=== PATIENT | male | born 1995 | race Caucasian/White ===

== ENCOUNTER 2016-08-21 23:15 | Emergency (ER) | payer OTHER ==
[~2016-08-21] VITALS: Ht 175.3 cm; Wt 86.2 kg
[2016-08-21] MEDS ORDERED: AZIT250T5 PO (23:27)
[2016-08-21] MEDS: LIDOCAINE 2% VISCOUS 15 ML UDC PO ONE (23:41)
[2016-08-21] MEDS: ANTACID SUSP 30 ML UDC (MYLANTA) PO ONE (23:41)
[2016-08-21 23:48] LABS: BILIRUBIN,URINE NEGATIVE (NEGATIVE); KETONES,URINE 1+ (NEGATIVE); LEUKOCYTE ESTERASE ,URINE NEGATIVE (NEGATIVE); NITRITE,URINE NEGATIVE (NEGATIVE); PH,URINE 8 (5-9); PROTEIN,URINE 2+ (NEGATIVE); UROBILINOGEN,URINE 1 MG/DL (NORMAL)
[2016-08-22 00:01] LABS: SQUAMOUS EPITHELIAL CELL,UR RARE /HPF
--- NOTE | 2016-08-22 00:05 | ED Abdominal Pain ---
General Chief Complaint: Abdominal/GI Problems Stated Complaint: POSS GALLBLADDER PAIN Nursing Triage Note: epigastric pain since 08/20/16, worse tonight. Sepsis Screen: No Definite Risk Source of Information: Patient Exam Limitations: No Limitations History of Present Illness Time Seen By Provider: 23:25 Initial Comments This 21-year-old gentleman presents to the emergency room with epigastric pain that started about this time last night and has worsened throughout the day. It is also worse with eating. He last ate baked chicken and mashed potatoes at 20:00 which seemed to exacerbate his pain. He has had some nausea without vomiting. He has also had some mild diarrhea. He was recently placed on antibiotics for left ear infection. Allergies and Home Medications Allergies Coded Allergies: fluticasone (Verified Allergy, Unknown, 08/21/16) Home Medications Azithromycin 250 Mg Tablet #6 1 TAB PO UD (Reported) Famotidine 20 Mg Tablet #30 20 MG PO BID Prescribed by: SONG ANGELO on 08/22/167 Omeprazole 20 Mg Tablet.dr #30 20 MG PO BID Prescribed by: SONG ANGELO on 08/22/167 Review of Systems Constitutional: no symptoms reported EENTM: See HPI Respiratory: No Symptoms Reported Gastrointestinal: See HPI Genitourinary: No Symptoms Reported Musculoskeletal: no symptoms reported Skin: no symptoms reported Psychiatric/Neurological: No Symptoms Reported Endocrine: No Symptoms Reported Past Mqvfuoh-Lutbza-Iixomv Hx Patient Social History Alcohol Use: Denies Use Recreational Drug Use: No Smoking Status: Never a Smoker 2nd Hand Smoke Exposure: No Recent Foreign Travel: No Contact w/Someone Who Travel: No Recent Infectious Disease Expo: No Recent Hopitalizations: No Immunizations Up To Date Tetanus Booster (TDap): Less than 5yrs PED Vaccines UTD: Yes Seasonal Allergies Seasonal Allergies: No Surgeries HX Surgeries: Yes (bmt) Respiratory Hx Respiratory Disorders: Yes Respiratory Disorders: Asthma Cardiovascular Hx Cardiac Disorders: No Neurological Hx Neurological Disorders: No Reproductive System Hx Reproductive Disorders: No Genitourinary Hx Genitourinary Disorders: No Gastrointestinal Hx Gastrointestinal Disorders: No Musculoskeletal Hx Musculoskeletal Disorders: No Endocrine Hx Endocrine Disorders: No HEENT HX ENT Disorders: No Cancer Hx Cancer: No Psychosocial Hx Psychiatric Problems: No Integumentary HX Skin/Integumentary Disorder: No Blood Transfusions Hx Blood Disorders: No Family Medical History Significant Family History: Heart Disease, GI Disease (gallbladder) Physical Exam Vital Signs VS - Last 72 Hours, by Label 08/21/16 08/22/16 23:27 00:11 Temp 99.9 99.9 Pulse 95 95 Resp 18 18 B/P 144/98 Pulse Ox 96 96 O2 Delivery Room Air Capillary Refill : Less Than 3 Seconds General Appearance: WD/WN no apparent distress HEENT: PERRL/EOMI normal ENT inspection TMs normal pharynx normal Neck: normal inspection Respiratory: lungs clear normal breath sounds no respiratory distress no accessory muscle use Cardiovascular: regular rate, rhythm no edema no murmur Gastrointestinal: normal bowel sounds non tender soft Extremities: normal inspection Neurologic/Psychiatric: photographic editor II-XII nml as tested no motor/sensory deficits alert normal mood/affect oriented x 3 Skin: normal color warm/dry Progress/Results/Core Measures Results/Orders Lab Results Laboratory Tests Test 08/21/16 23:25 Range/Units Urine Amorphous Sediment MOD AYDEN PHOSPHATE H /LPF Urine Bacteria NEGATIVE /HPF Urine Bilirubin NEGATIVE NEGATIVE Urine Casts NONE /LPF Urine Clarity CLEAR Urine Color YELLOW Urine Crystals PRESENT H /LPF Urine Culture Indicated NO Urine Glucose (UA) NEGATIVE NEGATIVE Urine Ketones 1+ H NEGATIVE Urine Leukocyte Esterase NEGATIVE NEGATIVE Urine Mucus LARGE H /LPF Urine Nitrite NEGATIVE NEGATIVE Urine Protein 2+ H NEGATIVE Urine RBC NONE /HPF Urine RBC (Auto) NEGATIVE NEGATIVE Urine Specific Driscoll 1.010 L 1.016-1.022 Urine Squamous Epithelial Cells RARE /HPF Urine Urobilinogen 1 NORMAL MG/DL Urine WBC NONE /HPF Urine pH 8 5-9 My Orders Orders-SONG CARDONA MD Cbc With Automated Diff (08/21/16 23:27) Comprehensive Metabolic Panel (08/21/16 23:27) Lipase (08/21/16 23:27) Ua Culture If Indicated (08/21/16 23:27) Saline Lock/Iv-Start (08/21/16 23:27) Lidocaine 2% Viscous 15 Ml (Xylocaine Vi (08/21/16 23:45) Antacid Suspension (Mylanta Suspension (08/21/16 23:45) Famotidine Tablet (Pepcid Tablet) (08/22/16 00:15) Pantoprazole Tablet (Protonix Tablet) (08/22/16 00:15) Medications Given in ED Current Medications Medications Dose Ordered Sig/Christopher Route Start Time Stop Time Status Last Admin Dose Admin Al Hydrox/Mg Hydrox/Simethicone 30 ml ONCE ONCE PO 08/21/16 23:45 08/21/16 23:46 DC 08/21/16 23:41 30 ML Famotidine 20 mg ONCE ONCE PO 08/22/16 00:15 08/22/16 00:15 DC 08/22/16 00:10 20 MG Lidocaine HCl 15 ml ONCE ONCE PO 08/21/16 23:45 08/21/16 23:46 DC 08/21/16 23:41 15 ML Pantoprazole Sodium 40 mg ONCE ONCE PO 08/22/16 00:15 08/22/16 00:15 DC 08/22/16 00:10 40 MG Vital Signs/I&O Vital Sign - Last 12Hours 08/21/16 08/22/16 23:27 00:11 Temp 99.9 99.9 Pulse 95 95 Resp 18 18 B/P 144/98 Pulse Ox 96 96 O2 Delivery Room Air Blood Pressure Mean: 113 Progress Note : Progress Note Patient's pain resolved with GI cocktail. Pepcid and Protonix were ordered and administered before dismissal. Discharge instructions reviewed with patient. Departure Impression Impression: Primary Impression: Epigastric abdominal pain Additional Impression: Gastritis Qualified Code: K29.00 - Acute gastritis without bleeding Disposition: HOME, SELF-CARE Condition: Improved Departure-Patient Inst. Decision time for Depature: 00:00 Referrals: TRICIA MCGRAW DO (PCP) Primary Care Physician Patient Instructions: Acute Abdomen (Belly Pain), Adult (DC), Gastritis Add. Discharge Instructions: Take omeprazole 20 mg twice daily for at least 2 weeks. For added treatment, you may also take famotidine (Pepcid) 20 mg twice daily. Avoid the following: Eating large meals, eating close to bedtime, fatty or greasy foods, spicy foods, caffeine, carbonation, chocolate, citrus fruits and juices, tomato products, alcohol, tobacco products, mint, NSAID medications such as ibuprofen or naproxen, or anything else you know irritate your stomach. For immediate relief of stomach pain you may also try Tums per package instructions. Return to the emergency room if symptoms worsen. Follow up with your primary care provider in 1 to 2 weeks. If symptoms have not completely resolved in 2 weeks, please notify your primary care provider. All discharge instructions reviewed with patient and/or family. Voiced understanding. Scripts Omeprazole 20 Mg Tablet.dr20 Mg PO BID #30 TAB Prov:SONG CARDONA MD 08/22/16 Famotidine 20 Mg [id number] Mg PO BID #30 TAB Prov:SONG CARDONA MD 08/22/16 SONG CARDONA MD Aug 22, 2016 00:05
[2016-08-22] MEDS ORDERED: FAMO20TA5 PO (00:08)
[2016-08-22] MEDS ORDERED: OMEP20TA7 PO (00:08)
[2016-08-22] MEDS: PANTOPRAZOLE 40 MG (PROTONIX) TAB PO ONE (00:10)
[2016-08-22] MEDS: FAMOTIDINE 20 MG (PEPCID) TABLET PO ONE (00:10)
[2016-08-22 00:11] VITALS: BP 144/98
== END 2016-08-22 00:11 | disposition home or self-care (01) ==
LOC: ER 23:19
DX: K29.70 Gastritis, unspecified, without bleeding (principal); R10.13 Epigastric pain
CPT/HCPCS: 81000; 99282